=== PATIENT | male | born 1995 | race Two or more races ===

== ENCOUNTER 2017-04-16 08:56 | Emergency (ER) | payer BC, OTHER ==
[~2017-04-16] VITALS: Ht 180.3 cm; Wt 219.5 kg
[2017-04-16] MEDS ORDERED: SODIUM CHLORIDE 0.9% 1,000 ML IV ONE (09:19)
[2017-04-16] MEDS ORDERED: cefTRIAXone SOD 1,000 MG VL IV ONE (09:30)
[2017-04-16] MEDS ORDERED: MORPHINE SULF INJ 2 MG/ML SYRINGE 1ML IV ONE (09:30)
[2017-04-16] MEDS ORDERED: ONDANSETRON HCL 4 MG/2 ML VIAL IV ONE (09:30)
[2017-04-16] MEDS ORDERED: cefTRIAXone 1GM/50ML D5W 50 ML IV ONE ×2 (09:37→10:00)
[2017-04-16 09:55] LABS: Basophils # (auto) 0.1 uL; Basophils % (auto) 0.8 % (0.0-2.0); CONDITION Y; Eosinophils # (auto) 0.1 uL; Eosinophils % (auto) 0.7 % (0.0-7.0); Hematocrit 38.7 % (41.0-53.0); Hemoglobin 12.6 g/dL (13.5-17.5); Lymphocytes # (auto) 1.8 uL; Lymphocytes % (auto) 16.1 % (10.0-50.0); Mean Corpuscular Hemoglobin 27.4 pg (28.0-32.0); Mean Corpuscular Hgb Conc. 32.5 g/dL (32.0-36.0); Mean Corpuscular Volume 84.4 fL (80.0-100.0); Mean Platelet Volume 9.3 fL (7.4-10.4); Monocytes # (auto) 0.6 uL; Monocytes % (auto) 5.7 % (0.0-12.0); Neutrophils # (auto) 8.6 uL; Neutrophils % (auto) 76.7 % (37.0-80.0); Platelet Count (auto) 319 10^3/uL (140-450); Red Cell Distribution Width 15.9 % (11.6-16.0); White Blood Cell 11.2 10^3/uL (4.4-10.8)
[2017-04-16 10:11] LABS: INR 1.01 (0.9-1.15); Partial Thromboplastin Time 29.6 sec (22.64-33.71)
[2017-04-16 10:25] LABS: Albumin 3.1 g/dL (3.4-5.0); BUN/Creatinine Ratio 25.4; Bilirubin, Total 0.5 mg/dL (0.2-1.0); Calcium 8.5 mg/dL (8.5-10.1); Potassium 3.9 mmol/L (3.5-5.1)
[2017-04-16 10:49] LABS: B-Type Natriuretic Peptide 3.4 pg/mL (0-100)
[2017-04-16 11:01] LABS: Temperature: 24.6 C (20.0-25.0)
[2017-04-16 12:25] LABS: Urine RBC None Seen /hpf (0 - 3)
[2017-04-16 12:44] VITALS: BP 131/85
[2017-04-16 12:47] LABS: Urine Bilirubin Negative (Negative); Urine Blood Negative /uL (Negative); Urine Color Yellow (Yellow); Urine Glucose Normal (Normal); Urine Ketone Negative (Negative); Urine Nitrite Negative (Negative); Urine Squamous Epithelial Cell FEW /hpf (<5); Urine Urobilinogen Normal (Negative); Urine pH 5.5 (5.0-8.0)
== END 2017-04-16 15:38 | disposition home or self-care (01) ==
LOC: EDBD 08:56 → ER 08:56
DX: L03.115 Cellulitis of right lower limb (principal); M25.361 Other instability, right knee
CPT/HCPCS: 29505; 36415; 71010; 73562; 80053; 81001; 83880; 84484; 85025; 85610; 85730; 87040; 93005; 96365; 96366; 96375; 99285; J0696; J2270; J2405; J7030; 87077